=== PATIENT | female | born 1990 | race Caucasian/White ===

== ENCOUNTER → 2018-11-20 10:01 | Outpatient (CLI) | payer OTHER, MEDICAID, SELFPAY ==
[2018-11-20 10:28] LABS: Add Manual Diff / Slide Review NO; Basophils Absolute Auto 0 /uL (0-100); Basophils Percent Auto 0.5 % (0-2); Eosinophils Absolute Auto 100 /uL (0-450); Eosinophils Percent Auto 1.4 % (2-4); Hematocrit 37.7 % (36-46); Hemoglobin 12.5 g/dL (12.0-16.0); Lymphocytes Absolute Auto 1900 /uL (1100-4500); Lymphocytes Percent Auto 25.8 % (25-40); Mean Corpuscular HGB Conc 33.1 % (30-36); Mean Corpuscular Hemoglobin 28.8 PG (26-34); Monocytes Absolute Auto 700 /uL (0-900); Monocytes Percent Auto 9.8 % (3-14); Neutrophils Absolute Auto 4600 /uL (1500-7000); Neutrophils Percent Auto 62.5 % (50-75); Platelet Count 366 X10^3/uL (150-400); Red Blood Cell Count 4.33 X10^6/uL (4.0-5.2); Red Cell Distribution Width 12.4 % (11.6-14.8); White Blood Cell Count 7.4 X10^3/uL (4.5-11.0)
[2018-11-20 10:36] LABS: Appearance Urine UA CLEAR; Bilirubin Urine UA NEGATIVE (NEGATIVE); Color Urine UA YELLOW; Glucose Urine UA NEGATIVE (Negative); Ketones Urine UA NEGATIVE (NEGATIVE); Leukocyte Esterase Urine UA NEGATIVE (NEGATIVE); Nitrite Urine UA NEGATIVE (Negative); Occult Blood Urine UA NEGATIVE (Negative); Protein Urine UA NEGATIVE (Negative); Specific Gravity Urine UA 1.015 (1.000-1.035); Urobilinogen Urine UA 0.2 E.U./dL (0.2)
[2018-11-20 11:37] LABS: Hepatitis B Surface Antigen NEGATIVE s/c (NEGATIVE); Rubella Antibody IgG 63.7 IU/mL (>15)
[2018-11-20 11:54] LABS: HIV 1 and 2 Antibody NEGATIVE (NEGATIVE); Hep C Virus Ab w/Reflex Quant NEGATIVE s/c (NEGATIVE)
[2018-11-21 15:19] LABS: Varicella IgG Antibody < 135.00 Index (< 135.00)
[2018-11-21 19:20] LABS: RPR Screen Nonreactive (Nonreactive)
== END ==
PROVIDERS: Visit Provider Family Medicine
CPT/HCPCS: 36415; 80055; 81003; 86703; 86787; 86803; 86850; 86900; 86901; 87086

== ENCOUNTER → 2018-11-20 10:16 | Outpatient (CLI) | payer OTHER, MEDICAID, SELFPAY ==
--- NOTE | 2018-11-20 10:43 | DI.US.S_ITS ---
PROCEDURE: US OB <= 14 WEEKS FETUS INDICATIONS: DATING / INITIAL ULTRASOUND TECHNIQUE: Real-time scanning was performed of the fetus and maternal pelvic organs, with image documentation. Endovaginal scanning was also performed to better visualize the fetus and maternal ovaries. COMPARISON: None. FINDINGS: Embryo: A pole is identified, measuring 5 mm, which correlates with a gestational age of 6 weeks 2 days, and the yolk sac is present. No cardiac activity is observed. Measurement variability in dating: +/- 4 weeks by LMP, +/- 7 days by mean sac diameter (use before 6 weeks gestation if crown-rump length not able to be measured), +/- 5 days by crown-rump length (up to 8 weeks 6 days gestation), +/- 7 days by crown-rump length (up to 13 weeks 6 days gestation). Maternal organs: Ovaries the ovaries appear normal. Limited images through the kidneys demonstrate no hydronephrosis. IMPRESSION: There is an irregularly shaped gestational sac with internal debris and the visualized yolk sac and pole, with a pole measuring 5 mm that correlates with a gestational age of 6 weeks 2 days, but without cardiac activity. demise. Dictated by: Erik Mckinnon M.D. on 11/20/2018 at 13:27 Approved by: Erik Mckinnon M.D. on 11/20/2018 at 13:29
== END ==
PROVIDERS: PCP Family Medicine; Visit Provider Family Medicine
DX: O02.1 Missed abortion (principal)
CPT/HCPCS: 36415; 76801; 76817; 80055; 81003; 86703; 86787; 86803; 86850; 86900; 86901; 87086

== ENCOUNTER → 2018-12-10 10:08 | Outpatient (CLI) | payer OTHER, MEDICAID, SELFPAY ==
--- NOTE | 2018-12-10 | DI.US.S_ITS ---
PROCEDURE: US PELVIC COMPLETE INDICATIONS: COMPLETE OR UNSPECIFIED SPONTANEOUS TECHNIQUE: Real-time scanning was performed of the pelvic organs, with image documentation. Additional endovaginal scanning was necessary due to incomplete visualization of the adnexal and endometrial structures by transabdominal scanning. COMPARISON: [facility], US, US OB <= 14 WEEKS FETUS, 11/20/2018, 10:45. FINDINGS: Transabdominal scanning: Limited scanning through the kidneys shows no hydronephrosis. No pathologic free abdominal or pelvic fluid. Endovaginal scanning: Uterus: Uterus is enlarged measuring 12.2 x 4.6 x 7.4 cm. There is a large cystic structure measuring 3.5 x 3.5 x 3.3 cm with a 3 mm echogenic nodule within the uterine cavity. The endometrium is not visualized. Ovaries: Right ovary measures 3.0 x 1.5 x 1.7 cm. left ovary measures 3.0 x 1.8 x 2.1 cm. There is a 1.9 cm corpus luteum cyst in the left ovary. IMPRESSION: 1. There is a 3.5 x 3.5 x 3.3 cm cystic structure in the endometrial cavity suspicious for retained products of conception. 2. Endometrium is not visualized. 3. Enlarged uterus. 4. Normal ovaries. Dictated by: Matheus Rider M.D. on 12/10/2018 at 16:15 Approved by: Matheus Rider M.D. on 12/10/2018 at 16:21
== END ==
PROVIDERS: PCP Family Medicine; Visit Provider Family Medicine
DX: O03.9 Complete or unspecified spontaneous abortion without complication (principal)
CPT/HCPCS: 76830; 76856

== ENCOUNTER → 2019-08-07 15:09 | Outpatient (CLI) | payer OTHER, SELFPAY ==
--- NOTE | 2019-08-07 15:13 | DI.US.S_ITS ---
PROCEDURE: US OB <= 14 WEEKS FETUS INDICATIONS: Initial US for Dating and Viability please OUTSIDE/PRIOR DATING DATA: First dating scan (date and location): 08/07/19. Estimated date of delivery (KARAN) from first dating scan: 04/02/20. TECHNIQUE: Real-time scanning was performed of the fetus and maternal pelvic organs, with image documentation. Endovaginal scanning was also performed to better visualize the fetus and maternal ovaries. COMPARISON: [facility], US, OB <= 14 WEEKS FETUS, 11/20/2018, 10:45. FINDINGS: Embryo: Witmer-rump length measures 3 mm corresponding to 5 weeks 6 days. No heart tones seen at this time. Measurement variability in dating: +/- 4 weeks by LMP, +/- 7 days by mean sac diameter (use before 6 weeks gestation if crown-rump length not able to be measured), +/- 5 days by crown-rump length (up to 8 weeks 6 days gestation), +/- 7 days by crown-rump length (up to 13 weeks 6 days gestation). Maternal organs: Ovaries within normal limits, with 2.3 cm right corpus luteal cysts as well as simple right ovarian cyst measuring 3.2 cm. Limited images through the kidneys demonstrate no hydronephrosis. IMPRESSION: Single intrauterine gestational sac with a 3 mm embryonic disc corresponding to gestational age of 5 weeks 6 days. No definitive heart tones seen at this time. Recommend followup ultrasound in one week to further assess embryonic viability. Dictated by: Giovani GRAYA Interpreted: Sonya Simpson MD on 08/07/2019 at 16:42 Approved by: Sonya Simpson MD, PhD on 08/07/2019 at 16:47
== END ==
PROVIDERS: PCP Family Medicine; Visit Provider Family Medicine
DX: Z34.01 Encounter for supervision of normal first pregnancy, first trimester (principal); Z3A.01 Less than 8 weeks gestation of pregnancy
CPT/HCPCS: 76801; 76817

== ENCOUNTER → 2020-02-19 15:28 | Outpatient (CLI) | payer BC, SELFPAY ==
[2020-02-19 15:55] LABS: Add Manual Diff / Slide Review NO; Basophils Absolute Auto 0 /uL (0-100); Basophils Percent Auto 0.5 % (0-2); Eosinophils Absolute Auto 100 /uL (0-450); Eosinophils Percent Auto 2.2 % (2-4); Hematocrit 34.6 % (36-46); Hemoglobin 11.9 g/dL (12.0-16.0); Lymphocytes Absolute Auto 1900 /uL (1100-4500); Mean Corpuscular HGB Conc 34.4 % (30-36); Mean Corpuscular Hemoglobin 30.2 PG (26-34); Mean Corpuscular Volume 87.7 fL (80-100); Monocytes Absolute Auto 600 /uL (0-900); Monocytes Percent Auto 9.9 % (3-14); Neutrophils Absolute Auto 3200 /uL (1500-7000); Neutrophils Percent Auto 54.4 % (50-75); Platelet Count 280 X10^3/uL (150-400); Red Blood Cell Count 3.95 X10^6/uL (4.0-5.2); Red Cell Distribution Width 12.7 % (11.6-14.8); White Blood Cell Count 5.9 X10^3/uL (4.5-11.0)
[2020-02-19 16:02] LABS: Alanine Aminotransferase 17 IU/L (<35); Albumin 4.6 g/dL (3.5-5.0); Albumin Globulin Ratio 1.4 (1.0-2.8); Alkaline Phosphatase 73 U/L (38-126); Aspartate Aminotransferase 28 IU/L (14-36); Bilirubin Total 0.5 mg/dL (0.2-1.3); Blood Urea Nitrogen 9 mg/dL (7-17); Calcium 9.2 mg/dL (8.4-10.2); Carbon Dioxide 29 mmol/L (22-32); Chloride 103 mmol/L (98-107); Estimated Glomerular Filt Rate > 60.0 mL/min (>60); Globulin 3.2 g/dL (1.7-4.1); Glucose 111 mg/dL (70-100); HEMOLYSIS < 15 (0-50); Potassium 3.7 mmol/L (3.4-5.1); Sodium 138 mmol/L (137-145); Total Protein 7.8 g/dL (6.3-8.2)
[2020-02-19 16:41] LABS: TSH w/ Reflex to FT4 0.96 uIU/mL (0.47-4.68)
== END ==
PROVIDERS: PCP Family Medicine; Referring Provider Family Medicine; Visit Provider Family Medicine
DX: R00.2 Palpitations (principal)
CPT/HCPCS: 36415; 80053; 83735; 84443; 85025

== ENCOUNTER → 2020-06-22 12:35 | Outpatient (CLI) | payer BC, SELFPAY ==
--- NOTE | 2020-06-22 12:37 | DI.US.S_ITS ---
PROCEDURE: US OB <= 14 WEEKS FETUS INDICATIONS: DATING AND VIABILITY OUTSIDE/PRIOR DATING DATA: Last menstrual period (LMP): 04/28/2020. LMP-based estimated date of delivery (KARAN): 02/02/2021 . First dating scan (date and location): 06/22/2020 . Estimated date of delivery (KARAN) from first dating scan: 02/05/2021 . TECHNIQUE: Real-time scanning was performed of the fetus and maternal pelvic organs, with image documentation. Endovaginal scanning was also performed to better visualize the fetus and maternal ovaries. COMPARISON: [facility], OB <= 14 WEEKS FETUS, 08/07/2019, 15:26. FINDINGS: Gestational sac: Intrauterine gestational sac-like fluid collection with mean sac diameter of 2.4 cm corresponding to 7 weeks 3 days. No yolk sac or pole. Measurement variability in dating: +/- 4 weeks by LMP, +/- 7 days by mean sac diameter (use before 6 weeks gestation if crown-rump length not able to be measured), +/- 5 days by crown-rump length (up to 8 weeks 6 days gestation), +/- 7 days by crown-rump length (up to 13 weeks 6 days gestation). Maternal organs: Ovaries within normal limits, with 2.8 cm right corpus luteal cyst . Limited images through the kidneys demonstrate no hydronephrosis. IMPRESSION: 2.4 cm gestational sac corresponding to gestational age of 7 weeks 3 days and no pole or yolk sac is seen. Findings consistent with early embryonic demise versus blighted ovum. Dictated by: Giovani COHEN Interpreted: Pipe Quintana MD on 06/22/2020 at 16:30 Approved by: Pipe Quintana M.D. on 06/22/2020 at 17:02
== END ==
PROVIDERS: PCP Family Medicine; Referring Provider Family Medicine; Visit Provider Family Medicine
DX: O36.80X0 Pregnancy with inconclusive fetal viability, not applicable or unspecified (principal); Z3A.01 Less than 8 weeks gestation of pregnancy
CPT/HCPCS: 76801

== ENCOUNTER → 2020-07-27 16:23 | Outpatient (CLI) | payer BC, SELFPAY ==
[2020-07-27 18:39] LABS: Free T4, Direct Thyroxine 1.02 ng/dL (0.78-2.19)
[2020-07-27 18:41] LABS: Progesterone, Total 5.94 ng/mL
[2020-07-27 18:53] LABS: Thyroid Stimulating Hormone 1.25 uIU/mL (0.47-4.68)
[2020-07-30 05:37] LABS: Cardiolipin Ab IgA <9 APL U/mL (0-11); Cardiolipin Ab IgG <9 GPL U/mL (0-14); Cardiolipin Ab IgM 21 MPL U/mL (0-12)
[2020-07-31 19:36] LABS: Protein C Antigen 93 % (60-150)
[2020-08-02 10:36] LABS: Protein S-Functional 99 % (63-140)
[2020-08-02 11:32] LABS: Dilute Russell Viper Venom 40.2 sec (0.0-47.0); Lupus Reflex Interpretation Comment: (.); PTT-LA 35.7 sec (0.0-51.9)
== END ==
PROVIDERS: PCP Family Medicine; Referring Provider Obstetrics & Gynecology; Visit Provider Obstetrics & Gynecology
DX: N96 Recurrent pregnancy loss (principal)
CPT/HCPCS: 36415; 81240; 81241; 81291; 83520; 84144; 84439; 84443; 85302; 85306; 85598; 85613; 86147

== ENCOUNTER → 2020-10-11 15:17 | Outpatient (CLI) | payer BC, SELFPAY ==
[2020-10-11 16:48] LABS: HCG Quantitative /Beta subunit 3012.1 mIU/mL
== END ==
PROVIDERS: PCP Family Medicine; Referring Provider Obstetrics & Gynecology; Visit Provider Obstetrics & Gynecology
DX: Z34.81 Encounter for supervision of other normal pregnancy, first trimester (principal); N96 Recurrent pregnancy loss
CPT/HCPCS: 36415; 84702

== ENCOUNTER → 2020-10-13 15:31 | Outpatient (CLI) | payer BC, SELFPAY ==
[2020-10-13 18:40] LABS: HCG Quantitative /Beta subunit 6892 mIU/mL
== END ==
PROVIDERS: PCP Family Medicine; Referring Provider Obstetrics & Gynecology; Visit Provider Obstetrics & Gynecology
DX: Z34.81 Encounter for supervision of other normal pregnancy, first trimester (principal); N96 Recurrent pregnancy loss
CPT/HCPCS: 36415; 84702

== ENCOUNTER → 2020-12-06 16:37 | Outpatient (CLI) | payer BC, SELFPAY ==
[2020-12-06 17:49] LABS: Appearance Urine UA CLEAR; Bilirubin Urine UA NEGATIVE (NEGATIVE); Color Urine UA YELLOW; Glucose Urine UA NEGATIVE (Negative); Ketones Urine UA NEGATIVE (NEGATIVE); Leukocyte Esterase Urine UA NEGATIVE (NEGATIVE); Nitrite Urine UA NEGATIVE (Negative); Occult Blood Urine UA NEGATIVE (Negative); Protein Urine UA NEGATIVE (Negative); Specific Gravity Urine UA <=1.005 (1.000-1.035); Urobilinogen Urine UA 0.2 E.U./dL (0.2)
[2020-12-06 17:50] LABS: Add Manual Diff / Slide Review NO; Basophils Absolute Auto 0 /uL (0-100); Basophils Percent Auto 0.2 % (0-2); Eosinophils Absolute Auto 100 /uL (0-450); Eosinophils Percent Auto 1.1 % (2-4); Hematocrit 33.7 % (36-46); Hemoglobin 11.6 g/dL (12.0-16.0); Lymphocytes Absolute Auto 2100 /uL (1100-4500); Lymphocytes Percent Auto 23.9 % (25-40); Mean Corpuscular HGB Conc 34.4 % (30-36); Mean Corpuscular Hemoglobin 29.3 PG (26-34); Mean Corpuscular Volume 85.3 fL (80-100); Monocytes Absolute Auto 700 /uL (0-900); Monocytes Percent Auto 7.5 % (3-14); Neutrophils Absolute Auto 5800 /uL (1500-7000); Neutrophils Percent Auto 67.3 % (50-75); Platelet Count 313 X10^3/uL (150-400); Red Blood Cell Count 3.95 X10^6/uL (4.0-5.2); Red Cell Distribution Width 12.7 % (11.6-14.8); White Blood Cell Count 8.7 X10^3/uL (4.5-11.0)
[2020-12-06 18:00] LABS: pH Urine UA 6.5 (4.5-8.0)
[2020-12-07 04:42] LABS: Varicella IgG Antibody <135 index (Immune >165)
[2020-12-07 08:10] LABS: RPR Screen Non Reactive (Non Reactive)
[2020-12-07 16:21] LABS: Hepatitis B Surface Antigen NEGATIVE s/c (NEGATIVE); Rubella Antibody IgG 66.7 IU/mL (>15)
[2020-12-07 16:37] LABS: HIV 1 & 2 Ab/Ag 4th Gen Combo NEGATIVE (NEGATIVE); Hep C Virus Ab w/Reflex Quant NEGATIVE s/c (NEGATIVE)
== END ==
PROVIDERS: PCP Family Medicine; Referring Provider Obstetrics & Gynecology; Visit Provider Obstetrics & Gynecology
DX: Z34.81 Encounter for supervision of other normal pregnancy, first trimester (principal)
CPT/HCPCS: 36415; 80055; 81003; 86787; 86803; 86850; 86900; 86901; 87086; 87389

== ENCOUNTER → 2021-01-05 10:23 | Outpatient (CLI) | payer BC, SELFPAY ==
[2021-01-07 19:38] LABS: AFP, Serum 45.3 ng/mL (.); Inhibin A, Dimeric 136.75 pg/mL (.); Maternal Ethnicity Caucasian (.); Maternal Weight 153 lbs (.); Number of Fetuses No (.); OSBR Risk 1 IN 8647 (.); Results Report (.); Test Results *Screen Negative* (.); hCG, Serum 36225 mIU/mL (.)
== END ==
PROVIDERS: PCP Family Medicine; Referring Provider Obstetrics & Gynecology; Visit Provider Obstetrics & Gynecology
DX: Z34.82 Encounter for supervision of other normal pregnancy, second trimester (principal); Z3A.17 17 weeks gestation of pregnancy
CPT/HCPCS: 36415; 82105; 82677; 84702; 86336

== ENCOUNTER → 2021-01-26 14:43 | Outpatient (CLI) | payer BC, SELFPAY ==
--- NOTE | 2021-01-26 14:44 | DI.US.S_ITS ---
PROCEDURE: US OB >= 14 WEEKS FETUS INDICATIONS: ANATOMY OUTSIDE/PRIOR DATING DATA: Last menstrual period (LMP): 07/06/2020. LMP-based estimated date of delivery (KARAN): 04/12/2021 . First dating scan (date and location): 01/26/2021 . Estimated date of delivery (KARAN) from first dating scan: 06/15/2021 . TECHNIQUE: Real-time scanning was performed of the fetus, with image documentation and biometric measurements. Endovaginal scanning: No COMPARISON: [facility], , OB >= 14 WEEKS FETUS, 01/03/2021, 15:00. FINDINGS: General: A single living intrauterine gestation is present. Presentation: Variable. Placenta: Placental position is posterior fundal , without previa. Amniotic fluid index: 14.5 cm, normal range is 5-24 cm. heart rate: 152 beats per minute. Maternal cervical canal: 5.0 cm long. Normal lower limit is 2.5 cm. Probable left lower uterine synechiae. biometrics: Biparietal diameter: 20 weeks 2 days Head circumference: 20 weeks Abdominal circumference: 20 weeks 1 day Femur length: 19 weeks 2 days Estimated gestational age from initial scan: not applicable. Composite gestational age from present scan: 20 weeks 0 days Estimated weight and percentile: 313 g Measurement variability for biometric dating: +/- 7 days from 14 weeks to 15 weeks 6 days gestation, +/- 10 days from 16 weeks to 21 weeks 6 days gestation, +/- 2 weeks from 22 weeks to 27 weeks 6 days gestation, +/- 3 weeks for 28 weeks gestation or later. weight reference: 4500 g or EFW >90/95% is considered macrosomia or large for gestational age. EFW <10% is small for gestational age. EFW 5% or less is considered intra-uterine growth restriction. Anatomic survey: Neuro: Ventricles are non-dilated at less than 10 mm. Cisterna magna is normal at 3-11 mm. Cerebellum is normal in size and morphology. Nuchal skin fold: Normal at less than 6 mm between 14-21 weeks gestational age. Face: Nose and lips, facial profile are normal. Spine: No evidence for spina bifida. Heart: 4-chambered heart is present, with normal ventricular outflow tracts. Diaphragm: Diaphragm is intact. Stomach: Left-sided stomach is present. Kidneys: No hydronephrosis. Normal is less than 5 mm in 2nd trimester, less than 7 mm in 3rd trimester. Cord: 3-vessel cord has orthotopic insertion. Bladder: Normal in size. Extremities: All 4 extremities identified. IMPRESSION: 1. Single living IUP with composite age of 20 weeks 0 days corresponding to ultrasound KARAN of 2. RVOT not well visualized; otherwise normal anatomy. Follow-up recommended. 3. Probable uterine synechiae which can be reassessed on follow-up examination. Dictated by: Giovani Amezcua [facility] Interpreted: Jairo Anderson MD on 01/26/2021 at 16:34 Approved by: Jairo Anderson M.D. on 01/26/2021 at 21:58
== END ==
PROVIDERS: PCP Family Medicine; Referring Provider Obstetrics & Gynecology; Visit Provider Obstetrics & Gynecology
DX: Z34.82 Encounter for supervision of other normal pregnancy, second trimester (principal); Z36.89 Encounter for other specified antenatal screening; Z3A.20 20 weeks gestation of pregnancy
CPT/HCPCS: 76811

== ENCOUNTER → 2021-01-31 19:16 | Outpatient (ROUT) | payer BC, SELFPAY ==
[2021-01-31 21:13] LABS: Urine N gonorrhoeae NOT DETECTED
[2021-01-31 21:19] LABS: Urine Chlamydia NOT DETECTED
== END ==
PROVIDERS: Family Provider Family Medicine; PCP Family Medicine; Visit Provider Obstetrics & Gynecology
DX: Z34.90 Encounter for supervision of normal pregnancy, unspecified, unspecified trimester (principal); Z3A.21 21 weeks gestation of pregnancy
CPT/HCPCS: 87491; 87591

== ENCOUNTER → 2021-03-02 11:35 | Outpatient (CLI) | payer BC, SELFPAY ==
[2021-03-02 13:41] LABS: Hematocrit 32.4 % (36-46)
[2021-03-02 13:59] LABS: GTT (PREG) 1 Hour PP 50gm Dose 103 mg/dL (76-139)
== END ==
PROVIDERS: Family Provider Family Medicine; PCP Family Medicine; Referring Provider Obstetrics & Gynecology; Visit Provider Obstetrics & Gynecology
DX: Z34.82 Encounter for supervision of other normal pregnancy, second trimester (principal); Z3A.26 26 weeks gestation of pregnancy
CPT/HCPCS: 36415; 82950; 85014; 85018

== ENCOUNTER 2021-05-12 14:07 | Emergency (ER) | payer BC, SELFPAY ==
[2021-05-12 15:19] VITALS: BP 150/99; PULSE 99; RESP 16; O2SAT 99; BMI 30.2
[2021-05-12 15:57] LABS: COVID19 -Nasal RAPID Negative (Negative)
--- NOTE | 2021-05-12 16:02 | ED.RECABL ---
HPI - Recheck/Abnormal Lab/Rx General Chief Complaint: Recheck/Abnormal Lab/Rx Stated Complaint: 35 Wks Preg. Exposed to COVID, Wants Test Time Seen by Provider: 05/12/21 15:43 History of Present Illness HPI narrative: Reji presents today with chief complaint COVID exposure. She reports that she had exposure to 1 of her friends at her baby shower 4 days ago. They spent approximately 4 hours together inside and outside. She denies any symptoms at this time. She is not vaccinated for COVID. She reports that she is 35 weeks and denies any significant abdominal pain, vaginal irritation, vaginal bleeding or any other acute concerns or complaints. Related Data Home Medications Medication Instructions Recorded Confirmed prenat.vits,cedric,[id number] 1 tab PO DAILY 11/04/20 05/02/21 Previous Rx's Medication Instructions Recorded progesterone micronized 200 mg 200 mg PO BEDTIME #30 cap 08/11/20 capsule (Prometrium) enoxaparin 40 mg/0.4 mL See Rx Instructions .ROUTE 03/21/21 subcutaneous syringe .COMPLEX #12 ml Allergies Allergy/AdvReac Type Severity Reaction Status Date / Time No Known Drug Allergies Allergy Verified 05/02/21 11:42 Review of Systems Review of Systems Narrative: As per HPI Patient History Medical History (Updated 05/12/21 @ 16:10 by Giovani Kaur PA-C) Anti-cardiolipin antibody positive (~07/27/20) Anxiety Clavicle fracture (~1992) Depression Elective Meningitis Migraines Performance anxiety Spontaneous Surgical History History of dilatation and curettage S/P tonsillectomy and adenoidectomy S/P wisdom tooth extraction Family History (Updated 11/04/20 @ 15:26 by Chika Kothari RN) Mother Depression Bipolar 1 disorder Hepatitis C Anxiety Grandmother Diabetes mellitus Congestive heart failure Father Family estrangement Unknown family medical history Grandfather Unknown family medical history Grandmother Unknown family medical history Family estrangement Grandfather Family estrangement Unknown family medical history Sister Bipolar 1 disorder Sister Depression Social History marital status: household members: spouse and none lives independently: No caregiver/support person: No pets and animals: Yes (3 dogs, 2 cats: Aware of precautions, safe.) education level: vocational occupational status: employed 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.) special allyssa needs: No seatbelt use: always do you feel safe at home: Yes Smoking Status: Never smoker second hand exposure: No alcohol intake: former substance use type: does not use during the past year weight has: remained stable well-balanced diet: daily or most days daily servings fruits/ve-4 caffeine: Yes (1 cup/day) Type(s) of exercise: walking and normal ROM and activity frequency: 5-6 times per week Smoking Status: Never smoker Exam Narrative Exam Narrative: Exam Narrative: Const General: cooperative, healthy appearing, comfortable, no acute distress, well developed and well groomed Nutritional Appearance: average body habitus Orientation: alert and oriented x3 HENMT Head: normal to inspection and atraumatic Ears: hearing grossly normal bilaterally Nose: external nose normal and nares normal Face and sinus: normal facial exam Neck Neck: normal visual inspection and supple Resp Effort & Inspection: normal respiratory effort, able to speak in complete sentences, no audible wheezes, not labored, no nasal flaring and no respiratory distress Neuro General: alert, oriented x3, gait normal, tone normal and moves all extremities Cognition: normal cognition Speech: speech normal Gait: normal gait Psych Appearance: grossly normal and well kempt Mental Status: mental status grossly normal Speech and Movement: speech and movement normal Mood: congruent mood Affect: normal affect Initial Vital Signs Initial Vital Signs: Vital Signs Pulse Rate 99 H 05/12/21 15:19 Respiratory Rate 16 05/12/21 15:19 Blood Pressure 150/99 H 05/12/21 15:19 Pulse Oximetry 99 05/12/21 15:19 Course Orders Ordered: ED Orders 05/12/21 15:25 COVID19 -Nasal swab/Pre-Proc Stat Vital Signs Vital signs: Vital Signs - 8 hr 05/12/21 15:19 Pulse Rate 99 H Respiratory Rate 16 Blood Pressure 150/99 H Pulse Oximetry 99 MDM - Recheck/Abnormal Lab/Rx Lab Data Labs: Lab Results 05/12/21 Range/Units 15:25 SARS-CoV-2 (PCR) Negative (Negative) MDM Narrative Medical decision making narrative: This is a well-appearing female with no symptoms at this time. Negative COVID test. Recommend following CDC protocol for exposure quarantine. Return precautions were discussed. Patient verbalizes understanding and agrees to plan and has no further concerns at this time. Thank you A [id number] system was used with the dictation of this note. Please disregard any spelling or grammatical errors. Discharge Plan Departure Patient Disposition: Home Clinical Impression: Close exposure to 2019-nCoV Discharge Date/Time: 05/12/21 16:13 Activity Restrictions/Additional Instructions: It was nice to meet you this afternoon. Please follow the CDC guidelines for post-exposure isolation. Recommend repeating your test and 3-5 days. Thank you Giovani Kaur PAC Prescriptions: No Action progesterone micronized [Prometrium] 200 mg capsule 200 mg PO BEDTIME Qty: 30 RF: 5 enoxaparin 40 mg/0.4 mL syringe See Rx Instructions .ROUTE .COMPLEX Qty: 12 RF: 1 prenat.vits,cedric,etm-[id number] Tablet 1 tab PO DAILY RF: 0 Referrals: Barbie Snyder DO [Primary Care Provider] -
== END 2021-05-12 16:13 | disposition home or self-care (01) ==
PROVIDERS: Emergency Medicine; Emergency Provider Physician Assistant; Family Provider Family Medicine; PCP Family Medicine
DX: Z20.822 Contact with and (suspected) exposure to COVID-19 (principal)
CPT/HCPCS: 87635; 99281; C9803

== ENCOUNTER 2021-05-17 15:03 | Outpatient (CLI) | payer BC, SELFPAY | END 2021-05-17 16:23 | disposition home or self-care (01) | LOC: OB 05-19 13:21 | PROVIDERS: Family Provider Family Medicine; PCP Family Medicine; Referring Provider Obstetrics & Gynecology; Visit Provider Obstetrics & Gynecology | DX: O36.1930 Maternal care for other isoimmunization, third trimester, not applicable or unspecified (principal); Z3A.36 36 weeks gestation of pregnancy | CPT/HCPCS: 59025; 87653; G0378; G0379 ==

== ENCOUNTER → 2021-05-17 17:16 | Outpatient (CLI) | payer BC, SELFPAY ==
[2021-05-18 14:22] LABS: Strep Grp B PCR NEG for Grp B Strep
== END ==
PROVIDERS: Family Provider Family Medicine; PCP Family Medicine; Visit Provider Obstetrics & Gynecology
DX: Z34.83 Encounter for supervision of other normal pregnancy, third trimester (principal); Z3A.36 36 weeks gestation of pregnancy
CPT/HCPCS: 87653

== ENCOUNTER 2021-05-21 08:05 | Inpatient (IN) | payer BC, SELFPAY ==
--- NOTE | 2021-05-21 09:50 | PM.OBHP.1 ---
OB HPI Date/Time Date of admission: 05/21/21 Date Patient Seen: 05/21/21 Time Patient Seen: 09:00 History of Present Condition Chief complaint: LABOR : 6 Para: 0 Estimated Date of Delivery: 06/12/21 Narrative: Reji Fiore is a 30 year old at 36 weeks and 6 days gestation with spontaneous rupture membranes at approximately 4:30 a.m. this morning with clear fluid. She is feeling frequent movement. She has had a small amount of blood with wiping but nothing heavy. She is just beginning to feel mild contractions this morning. was complicated by positive anticardiolipin antibody for which she was placed on Lovenox and a baby aspirin. She was just transitioned to heparin, last dose was last night. She was seen in the center earlier this week due to hypertension. Blood pressures came down spontaneously. Today she denies headache, vision changes, worsening edema or abdominal pain. She received good care with Dr. Mina. History of Present care: good care, initiated at week # (9), number of visits (9) and pounds weight gain (41) Dating criteria: LMP confirmed by 1st trimester US Ultrasounds: normal mid trimester US Obstetrical complications: none Medical complications: none Preadmission Labs Blood type: O (+) positive -: Antibody screen: negative, GBS status: negative, HBsAG: negative, HIV: negative and RPR/VDLR: negative -: Chlamydia screen: not detected -: Rubella: immune and Varicella: not immune HCT: 32.4 HCAB: negative PAP: Normal Quad screen: Normal Urine: Negative 1 hr GTT: 103 Prior (ies) History: Elective x2, SAB x3 Evaluation Evaluation Baseline heart rate: 150 Variability: Moderate (11-25) monitor accelerations: Present Monitor Decelerations: Absent Contraction Frequency (minutes): 2 Uterine Contraction Intensity: Mild Category of Tracing: Reactive Status: Category l Cervical dilation (cm): 1 Cervical effacement (%): 80 station: -2 Non-invasive Membranes Rupture Test: positive PFSH Medical History Anti-cardiolipin antibody positive (~07/27/20) Anxiety Clavicle fracture (~1992) Depression Elective Meningitis Migraines Performance anxiety Spontaneous Surgical History History of dilatation and curettage S/P tonsillectomy and adenoidectomy S/P wisdom tooth extraction Family History Mother Depression Bipolar 1 disorder Hepatitis C Anxiety Grandmother Diabetes mellitus Congestive heart failure Father Family estrangement Unknown family medical history Grandfather Unknown family medical history Grandmother Unknown family medical history Family estrangement Grandfather Family estrangement Unknown family medical history Sister Bipolar 1 disorder Sister Depression Social History marital status: household members: spouse and none lives independently: No caregiver/support person: No pets and animals: Yes (3 dogs, 2 cats: Aware of precautions, safe.) education level: vocational occupational status: employed 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.) special allyssa needs: No seatbelt use: always do you feel safe at home: Yes Smoking Status: Never smoker second hand exposure: No alcohol intake: former substance use type: does not use during the past year weight has: remained stable well-balanced diet: daily or most days daily servings fruits/ve-4 caffeine: Yes (1 cup/day) Type(s) of exercise: walking and normal ROM and activity frequency: 5-6 times per week Meds Home Medications and Allergies Home Medications Medication Instructions Recorded Confirmed Type progesterone micronized 200 mg 200 mg PO BEDTIME #30 cap 08/11/20 05/17/21 Rx capsule (Prometrium) prenat.vits,cedric,rya-lutq-wnswb 1 tab PO DAILY 11/04/20 05/17/21 History enoxaparin 40 mg/0.4 mL See Rx Instructions .ROUTE 03/21/21 05/17/21 Rx subcutaneous syringe .COMPLEX #12 ml heparin (porcine) 5,000 unit/mL (1 5,000 unit SUBCUT Q12H #50 ml 05/17/21 05/17/21 Rx mL) injection cartridge Allergies Allergy/AdvReac Type Severity Reaction Status Date / Time No Known Drug Allergies Allergy Verified 05/17/21 14:08 Exam Vital Signs (past 8 hours): Temperature 36.7? Blood pressure 132/77 heart rate 85 Const General: healthy appearing and comfortable [facility] Head: normal to inspection Ears: hearing grossly normal bilaterally Nose: external nose normal Face and sinus: normal facial exam Mouth: oral mucosae normal Eyes General: appearance normal, both eyes and all related structures Neck Neck: normal visual inspection Resp Effort & Inspection: normal respiratory effort Auscultation: clear to auscultation bilaterally Cardio Rate: regular rate Rhythm: regular rhythm Heart Sounds: no murmurs GI Other: Gravid External Female Exam: normal external appearance Manual OB Exam: dilated 1, effaced (80) and station -2 Presentation: vertex Estimated Weight (lbs): 6 Amniotic Fluid: clear Back/Spine/Pelvis Back: normal to inspection Skin General: no rashes or lesions noted Extrem General: normal to inspection and no pedal edema Assessment and Plan Assessment and Plan Assessment and Plan narrative: 30-year-old at 36 weeks and 6 days with spontaneous rupture of membranes at 4:30 a.m. with clear fluid. GBS negative. She is carter regularly though not yet in active labor. Patient will walk for an hour then return to the center for Pitocin if not in active labor. was complicated by anticardiolipin antibody for which the patient used Lovenox and aspirin. She was recently transitioned to heparin. Last dose of heparin was last night. Plan Pitocin per protocol Epidural upon request Anticipate Keaton Mina aware of patient and plans to deliver when the time comes.
[2021-05-21 11:53] LABS: Add Manual Diff / Slide Review NO; Basophils Absolute Auto 0 /uL (0-100); Basophils Percent Auto 0.2 % (0-2); Eosinophils Absolute Auto 100 /uL (0-450); Eosinophils Percent Auto 1.1 % (2-4); Hematocrit 34.4 % (36-46); Hemoglobin 11.4 g/dL (12.0-16.0); Lymphocytes Absolute Auto 2000 /uL (1100-4500); Lymphocytes Percent Auto 16.8 % (25-40); Mean Corpuscular Hemoglobin 28.8 PG (26-34); Mean Corpuscular Volume 87.4 fL (80-100); Monocytes Absolute Auto 900 /uL (0-900); Monocytes Percent Auto 7.6 % (3-14); Neutrophils Absolute Auto 8900 /uL (1500-7000); Neutrophils Percent Auto 74.3 % (50-75); Platelet Count 273 X10^3/uL (150-400); Red Blood Cell Count 3.94 X10^6/uL (4.0-5.2); Red Cell Distribution Width 13.1 % (11.6-14.8)
[2021-05-21 12:43] LABS: COVID19 - ADMIT (NP swab/PCR) Negative (Negative)
[2021-05-21] MEDS: LACTATED RINGERS 1,000 ML 100 ML IV ×2 (13:27→17:25)
[2021-05-21] MEDS: OXYTOCIN PREMIX 30 UNIT/500 ML PLAST..BAG IV (13:27)
[2021-05-21 14:11] LABS: Alanine Aminotransferase 15 IU/L (<35); Albumin 3.7 g/dL (3.5-5.0); Alkaline Phosphatase 226 U/L (38-126); Aspartate Aminotransferase 27 IU/L (14-36); Bilirubin Total 0.3 mg/dL (0.2-1.3); Blood Urea Nitrogen 12 mg/dL (7-17); Calcium 9.8 mg/dL (8.4-10.2); Carbon Dioxide 21 mmol/L (22-32); Chloride 107 mmol/L (98-107); Estimated Glomerular Filt Rate > 60.0 mL/min (>60); Globulin 3.6 g/dL (1.7-4.1); Glucose 89 mg/dL (70-100); HEMOLYSIS < 15 (0-50); Potassium 4.4 mmol/L (3.4-5.1); Sodium 136 mmol/L (137-145); Total Protein 7.3 g/dL (6.3-8.2)
[2021-05-21 14:21] LABS: Creatinine Urine Random 42.1 mg/dL; Protein (Total) Urine Random 16 mg/dL (0-12); Protein Creatinine Ratio Urine 0.38 GRAM/24H
[2021-05-21 15:21] VITALS: BP 134/95
--- NOTE | 2021-05-21 17:37 | PM.AN.REGBLK ---
Regional Block Pre-procedure Procedure: Continuous Lumbar Epidural for L&D Attending OB provider: Barbie Snyder PMH/ROS narrative: Patient with previous SAB 2/2 anti-cardiolipin Ab syndrome. Lovenox --> heparin. None today. Hx: No personal or family history of anesthesia problems. PSH/Anesthesia history narrative: no previous epidurals Exam narrative: MP1, RRR, CTAB ASA Class: III Labs: Hct 34.4 % (36-46) L 05/21/21 11:25 Plt Count 273 X10^3/uL (150-400) 05/21/21 11:25 Medications: Current Medications Generic Name Dose Route Start Last Admin Trade Name Freq PRN Reason Stop Dose Admin Calcium Carbonate 1,000 mg 05/21/21 09:49 Calcium Carbonate 500 Mg Tab PO Q2HR PRN Dyspepsia Carboprost Tromethamine 250 mcg 05/21/21 09:49 Carboprost 250 Mcg/Ml Ampul IM Q90M PRN Bleeding Fentanyl 50 mcg 05/21/21 09:49 Fentanyl 100 Mcg/2 Ml Inj IV Q1H PRN Pain, Moderate (4-6) Lactated Ringer's 1,000 mls @ 100 mls/hr 05/21/21 10:00 05/21/21 17:25 Lactated Ringers IV 100 mls/hr CONT IMMANUEL Administration Oxytocin/Lactated Ringer's 30 unit in 500 mls @ 200 mls/hr 05/21/21 09:49 Oxytocin Premix IV CONT PRN Bleeding Protocol Tranexamic Acid 1,000 mg/ 100 mls @ 200 mls/hr 05/21/21 09:49 Sodium Chloride IV NOW PRN Bleeding Oxytocin/Lactated Ringer's 30 unit in 500 mls @ 3 mls/hr 05/21/21 12:30 05/21/21 13:27 Oxytocin Premix IV 3 milliunit/min TITRATE IMMANUEL 3 mls/hr Administration Protocol 3 MILLIUNIT/MIN Methylergonovine Maleate 0.2 mg 05/21/21 09:49 Methylergonovine 0.2 Mg Tablet PO Q6HR PRN Heavy Bleeding Methylergonovine Maleate 0.2 mg 05/21/21 09:49 Methylergonovine 0.2 Mg/Ml Vial IM NOW PRN Bleeding Misoprostol 800 mcg 05/21/21 09:49 Misoprostol 200 Mcg Tablet NM NOW PRN Bleeding Misoprostol 1,000 mcg 05/21/21 09:49 Misoprostol 200 Mcg Tablet NM NOW PRN Bleeding Misoprostol 400 mcg 05/21/21 09:49 Misoprostol 200 Mcg Tablet SL NOW PRN Bleeding Naloxone HCl 0.2 mg 05/21/21 09:49 Naloxone 0.4 Mg/Ml Vial IV Q2MIN PRN Opiate Reversal Ondansetron HCl 4 mg 05/21/21 09:49 Ondansetron 4 Mg/2 Ml Inj IV Q4HR PRN Nausea And Vomiting Oxytocin 10 unit 05/21/21 09:49 Oxytocin 10 Unit/Ml Vial IM NOW PRN Bleeding Allergies: Allergies Allergy/AdvReac Type Severity Reaction Status Date / Time No Known Drug Allergies Allergy Verified 05/17/21 14:08 Procedure Insertion date: 05/21/21 Insertion time: : Prep/Local: betadine x3 (chloroprep) and 1% lidocaine Interspace: L3-4 Patient position: sitting Needle: 18 gauge Maryannetead Loss of resistance with: saline LEONA at (cm): 5 Catheter placed at SKIN (cm): 10 Catheter in SPACE (cm): 5 Insertion: Yes CSF Initial Medications TEST DOSE time: 17:20 TEST DOSE: 1.5% lidocaine with epinephrine 1:200k (mL): 5 BOLUS DOSE time: : BOLUS DOSE (mL): 2 BOLUS DOSE med: other (10mcg fentanyl intrathecally, 90mcg fentanyl via epidural catheter) Infusion INFUSION: 0.0625% bupivacaine and with fentanyl 2 mcg/mL Initial rate (mL/hr): 12 Post-procedure Anesthesia time START: 17:02
--- NOTE | 2021-05-21 18:44 | PM.OBPNLAB ---
Date/Time Date Patient Seen: 05/21/21 Time Patient Seen: 18:44 Pain Control Pain control: epidural Pelvic Exam Dilation (cm): 5 Effacement (%): 100 station: -1 Amniotic membrane status: Ruptured Contractions Contractions on admission: irregular Monitor mode: External Pitocin rate (mU/min): 3 Contraction frequency (min): 4 Contraction pattern: Irregular Contraction intensity: Strong/Firm Status status: Category l Heart Rate Baseline: 135 Monitor Accelerations: Present Monitor Decelerations: Absent Monitor Variability: Moderate Assessment and Plan Assessment: active labor Plan: continuous present management
--- NOTE | 2021-05-21 22:58 | PM.OBPRVD ---
Labor & Delivery Delivery date: 05/21/21 Delivery augmentation: rupture of membranes Delivery monitor: external FHT Route of delivery: L&D Laceration Description: Vaginal - 2nd Degree and Labial (right labial, first degree) Delivery repair: vicryl (3-O) Estimated blood loss (mL): 100 Anesthesia Type: Epidural Narrative: Patient is a 30-year-old who presented premature rupture membranes at 36 weeks and 6 days gestation. STAGE I: Labor Patient presented to the center with spontaneous rupture of membranes at 4:30 a.m. at home with clear fluid. She was started Pitocin per protocol and went on to receive an epidural with excellent pain control. heart tones were category 1 and 2 throughout stage I due to variable decelerations at times. Variability remained moderate throughout. She was complete at 10:00 p.m.. STAGE II: Delivery Patient pushed over 2 contractions and delivered a vigorous female infant at 10:35 p.m.. Infant was vertex and HECTOR. was immediately placed on mother's abdomen. Cord was clamped and cut after 1 minute delay. STAGE III: Placenta/Cord Placenta delivered at 10:40 p.m. after active management and appeared intact with a three-vessel cord. Pitocin bolus given via IV after delivery of the placenta. A second-degree vaginal laceration was repaired in the usual fashion with 3-0 Vicryl. A right labial laceration was also repaired with good hemostasis. Uterine fundus was firm below umbilicus after repair. Hemostasis assured. EBL: 100 mL. Needle and sponge counts were correct. The vagina was inspected and no items were left in situ. Patient was doing well with Peggy, her and at bedside. Baby 1: Infant gender: Female Presentation: vertex Placenta delivery description: Spontaneous Cord Vessel Description: 3 Vessels score (1 min): 9 score (5 min): 9 Plan for aftercare: Routine care
[2021-05-22] MEDS: IBUPROFEN 600 MG TABLET PO (01:10)
[2021-05-22] MEDS: ACETAMINOPHEN 325 MG TABLET 650 MG PO (01:10)
[2021-05-22 02:30] VITALS: BP 144/90; PULSE 102; RESP 16; TEMP 37.1
[2021-05-22] MEDS: ENOXAPARIN 40 MG/0.4 ML SYRINGE SUBCUT (16:05)
[2021-05-23] MEDS: ENOXAPARIN 40 MG/0.4 ML SYRINGE SUBCUT (09:48)
[2021-05-23] MEDS: DOCUSATE 100 MG CAPSULE PO (09:48)
--- NOTE | 2021-05-31 04:14 | P.DS_ITS ---
Discharge Providers Provider Date of admission: 05/21/21 08:05 Discharge Date: 05/23/21 Primary care physician: Barbie Snyder DO Consults: 05/22/21 23:00 Consult to [employer] Routine Comment: Discharge provider: Janae Mina MD Summary Hospital Course Date Patient Seen: 05/23/21 Time Patient Seen: 13:30 Diagnoses: 36-5/7 weeks gestation Pre term premature rupture of membranes Spontaneous vaginal delivery Hospital Course: Patient is a 30-year-old 6 para 1 who presented on May 21, 2021 with spontaneous rupture of membranes. She was started on Pitocin and progressed in active labor and had a spontaneous vaginal delivery. Her course was unremarkable and on day # 2 she was discharged home. Peripartum Data Infant Delivery Method: Natural Vaginal Laceration Description: Perineal - 2nd Degree and Labial (Right) Episiotomy description: None Procedures: Epidural analgesia Spontaneous vaginal delivery Obstetrical laceration repair complications: none Imbler 1: Gender: Female Disposition of : home Status at Discharge Cognitive/behavioral status at discharge: oriented Functional status at discharge: independent ambulation Overall status at discharge: patient is progressing back to baseline Time Spent with Patient Time attestation: Total time spent providing and/or coordinating discharge services: Time spent: Less than 30 minutes Objective Labs Result Diagrams: 05/21/21 11:25 05/21/21 13:53 Exam Narrative Exam Narrative: Generally: Patient is sitting up in bed, holding , no acute distress Fundus: Firm at U-2 Extremities: Trace edema, negative Homans Discharge Plan Discharge Plan Patient Disposition: Home Provider Discharge Comment: Call with fever, chills, or bleeding vaginally more than a pad in an hour Ibuprofen 600 mg every 6 hours as needed for cramping Discharge orders & Medications Prescriptions: Continued prenat.vits,cedric,[id number]-[id number] Tablet 1 tab PO DAILY RF: 0 heparin (porcine) 5,000 unit/mL (1 mL) cartridge 5,000 unit SUBCUT Q12H Qty: 50 RF: 0 Discontinued progesterone micronized [Prometrium] 200 mg capsule 200 mg PO BEDTIME Qty: 30 RF: 5 enoxaparin 40 mg/0.4 mL syringe See Rx Instructions .ROUTE .COMPLEX Qty: 12 RF: 1 Follow up/Referrals: Janae Mina MD [Physician] - 6 Weeks (Please follow-up with Dr. Mina for a 6 week [id number] check-up on July 04 @ 10:30am. Please call with any questions or concerns.) Diet/Activity/Treatments Diet: Regular Activity: Nothing in the vagina for 6 weeks Skin/Wound/Dressing Care Report to your healthcare provider any signs of infection, such as:: chills, fever, increased pain and unusual drainage Visit Report/Discharge Packet Instructions: DI for Labor and Delivery, Vaginal Discharge Data Primary Care Provider: Barbie Snyder
== END 2021-05-23 14:00 | disposition home or self-care (01) | DRG 807 ==
PROVIDERS: Admitting Provider Family Medicine; Family Provider Family Medicine; PCP Family Medicine; Referring Provider Family Medicine; Visit Provider Family Medicine
DX: O42.013 Preterm premature rupture of membranes, onset of labor within 24 hours of rupture, third trimester (principal); Z37.0 Single live birth; Z3A.36 36 weeks gestation of pregnancy; O70.1 Second degree perineal laceration during delivery; O99.891 Other specified diseases and conditions complicating pregnancy; R79.1 Abnormal coagulation profile; Z20.822 Contact with and (suspected) exposure to COVID-19
CPT/HCPCS: 01967; 36415; 59050; 59400; 59409; 80053; 82570; 84112; 84156; 85025; 86850; 86900; 86901; 87635; C9803; G0379; J1650; J2590

== ENCOUNTER → 2022-02-09 10:33 | Outpatient (CLI) | payer BC, SELFPAY ==
[2022-02-09 11:55] LABS: Add Manual Diff / Slide Review NO; Basophils Absolute Auto 0 /uL (0-100); Basophils Percent Auto 0.5 % (0-2); Eosinophils Absolute Auto 300 /uL (0-450); Eosinophils Percent Auto 4.1 % (2-4); Hematocrit 39.6 % (36-46); Hemoglobin 13.1 g/dL (12.0-16.0); Lymphocytes Absolute Auto 2200 /uL (1100-4500); Mean Corpuscular Hemoglobin 28.8 PG (26-34); Mean Corpuscular Volume 87.2 fL (80-100); Monocytes Absolute Auto 600 /uL (0-900); Monocytes Percent Auto 9.3 % (3-14); Neutrophils Absolute Auto 3800 /uL (1500-7000); Neutrophils Percent Auto 55.1 % (50-75); Platelet Count 328 X10^3/uL (150-400); Red Blood Cell Count 4.54 X10^6/uL (4.0-5.2); Red Cell Distribution Width 12.6 % (11.6-14.8)
[2022-02-09 12:29] LABS: Alanine Aminotransferase 16 IU/L (<35); Albumin 4.9 g/dL (3.5-5.0); Albumin Globulin Ratio 1.6 (1.0-2.8); Alkaline Phosphatase 136 U/L (38-126); Aspartate Aminotransferase 23 IU/L (14-36); BUN Creatinine Ratio 18.7 (6-22); Bilirubin Total 0.5 mg/dL (0.2-1.3); Blood Urea Nitrogen 14 mg/dL (7-17); Calcium 9.5 mg/dL (8.4-10.2); Carbon Dioxide 29 mmol/L (22-32); Chloride 104 mmol/L (98-107); Estimated Glomerular Filt Rate > 60 mL/min (>60); Globulin 3.1 g/dL (1.7-4.1); Glucose 87 mg/dL (70-100); HEMOLYSIS < 15 (0-50); Potassium 4.5 mmol/L (3.4-5.1); Sodium 140 mmol/L (137-145)
[2022-02-09 12:58] LABS: TSH w/ Reflex to FT4 0.72 uIU/mL (0.47-4.68)
[2022-02-09 13:16] LABS: Vitamin B12 825 pg/mL (239-931)
== END ==
PROVIDERS: Family Provider Family Medicine; PCP Family Medicine; Referring Provider Family Medicine; Visit Provider Family Medicine
DX: D64.9 Anemia, unspecified (principal); F32.81 Premenstrual dysphoric disorder; Z15.89 Genetic susceptibility to other disease
CPT/HCPCS: 36415; 80053; 82607; 84443; 85025

== ENCOUNTER → 2022-04-28 12:36 | Outpatient (CLI) | payer BC, SELFPAY ==
[2022-04-28 14:43] LABS: HCG Quantitative /Beta subunit < 2.4 mIU/mL
== END ==
PROVIDERS: Obstetrics & Gynecology; Family Provider Family Medicine; PCP Family Medicine; Referring Provider Family Medicine; Visit Provider Family Medicine
DX: O20.9 Hemorrhage in early pregnancy, unspecified (principal)
CPT/HCPCS: 36415; 84702

== ENCOUNTER → 2022-05-08 10:48 | Outpatient (RCR) | payer BC, SELFPAY ==
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
--- NOTE | 2021-02-07 17:02 | PT.OPPOC ---
Physical, Occupational & Speech Therapy At [facility] Current Diagnoses Low back pain (02/07/21) Other specified related conditions, unspecified trimester (02/07/21) Encounter for supervision of normal , unspecified, unspecified trimester (02/07/21) Visit Care Team Role Provider Type Barbie Snyder DO Family Provider Physician Primary Care Provider Specialty: [facility] Practice Address: [address] [place] [address], [place], [address] Email: [email or web address] Janae Mina MD Attending Provider Physician Referring Provider Specialty: Gynecology [employer]NA[employer] Obstetrics Address: [address] [place] [address], [id number] Email: [email or web address] Plan Of Care PT-OP-T Assessment and Plan Start: 02/04/21 18:52 Freq: Status: Active Protocol: Document 02/07/21 09:52 LRN (Rec: 02/07/21 10:36 LRN [id number]) Physical Therapy Assessment Rehab Potential Rehabilitation Potential Good Evaluation Complexity Number of Personal Factors/Comorbidities 1-2 Number of Body Systems Impaired 4 or More Clinical Presentation at Evaluation Evolving Impairments Impairments Activity Tolerance,Pain, Posture,ROM,Strength Goals Three Impairment Pain in R buttock & LE rated 8 /10 Short Term Goal (STG) Pt will be able to participate in a walking program at least 3x/week. STG Duration 04/08/21 Video Library Assistant Goal (LTG) Decrease low back, R buttock and LE pain to no greater than 5-6/10 at its worst to be tolerable. LTG Duration 05/08/21 Two Impairment R hip pain/LE numbness after prolonged positioning ( primarily sitting) Short Term Goal (STG) Pt will be educated in proper transfers to reduce strain/ pain at SIJ's. STG Duration 02/21/21 Video Library Assistant Goal (LTG) Pt will be able to manage her pain without medications. LTG Duration 05/08/21 One Impairment Lacks appropriates self care HEP Short Term Goal (STG) Pt will be educated in proper posture. STG Duration 02/14/21 Fpc Goal (LTG) Pt will be independent in a self care mobility & strengthening HEP for the back /hips/PF. LTG Duration 05/08/21 Assessment Summary Assessment Sitting during eval pain started. Pt is a 30 yo female who is 22 weeks ( delivery estimated date ), with mechanical and soft tissue dysfunction and appears to have R SIJ dysfunction ( hypermobile) and decreased trunk mobility: flex, significant R rotation, R SB. She has pain with decreased L hip IR mobility and R SIJ pain limiting PSLR on the left (no pain with PSLR on right). As expected she has decreased core strength and R SIJ pain/dysfunction. She demonstrates poor posturing as would be expected with her growing belly, causing changes in her center of gravity. The pt will benefit from skilled physical therapy for education in proper posturing and exercises to help counteract changes in posture as her progresses. Transfer training, therapeutic ex to improve core/hip strength and stability and stretches to decrease her stiffness and pain after prolonged sitting, as well as hip/PF stretches to prepare the pt's body for birthing. STM and manual therapy for pain management and postural corrections. Therapy will be for 2x/week, until the pt is set on a self care program, then followed 1x/week as needed. Physical Therapy Plan Frequency and Duration Frequency of Treatment 2x/Week Plan of Care Start Date 02/07/21 Plan of Care End Date 05/08/21 Therapeutic Interventions Therapeutic Interventions Home Exercise Program,Joint Mobilizations,Manual Therapy, Patient/Caregiver Education, Self-Care/Home Management,Soft Tissue Mobilization,Taping, Therapeutic Activities, Therapeutic Exercises Modalities Cold Pack/Ice Massage Next Visit Focus/Plan Next Note Type Treatment Note Next Visit Plan Pre- rehabilitation. Review of nighttime positioning. Manual therapy for R SIJ dysfunction (R anteriorly rotated pelvis, standing L rotated sacrum, supine R rotated sacrum), R SIJ stabilization, core strengthening, PF/LB/hip stretches (cat/cow; child's pose, trunk R rot & lateral flex, sitting trunk flex, hip IR left) Plan of Care Dates Plan of Care Start Date 02/07/21 Plan of Care End Date 05/08/21 Electronically Signed by: Josiane Maldonado, PT 02/07/21 0981 Please Sign and Return: I have reviewed this Plan of Care and certify that the skilled therapy services above are required to meet the patient?s needs. Physician Signature Date Printed Name and Credentials Clinical Instructor Signature Printed Name and Credentials
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
--- NOTE | 2021-02-21 15:30 | PT-OP ANOTE ---
Pt notified of missed appointment and of her next scheduled appointment.
--- NOTE | 2021-10-06 11:09 | PT.OPDS ---
Current Diagnoses Low back pain (02/16/21) Other specified related conditions, unspecified trimester (02/16/21) Encounter for supervision of normal , unspecified, unspecified trimester (02/16/21) Visit Care Team Role Provider Type Barbie Snyder DO Family Provider Physician Primary Care Provider Specialty: Family Practice Address: [address] [place] [address], [place], [address] Email: [email or web address] Janae Mina MD Attending Provider Physician Referring Provider Specialty: Gynecology [employer] [facility] Address: [address] [place] [address], [id number] Email: [email or web address] Visit Number Visit Number 3 Discharge Summary PT-OP-B Current Condition Start: 02/04/21 18:52 Freq: Status: Active Protocol: Document 02/07/21 09:52 LRN (Rec: 02/07/21 10:36 LRN [id number]) Current Condition History of Current Condition Onset Date Since 11/2020 (2nd month of ) Current Complaints R hip pain, & radiating pain/ numbness down the posterior R leg. History of Current Condition 22 weeks . Insidious onset with . Two previous miscarrages due to clotting and each time had low back pain; therefore she initially thought her back pain was related to pending miscarrage, but has been on Lovenox for the blood clotting , and back pain persists. Pain varies, no pain unless moving around a lot, then pain worsens, causing surging pain and numbness on the R buttock and down the posterior aspect of the leg down to the ankle. Symptoms decrease if she lies on her back, once she gets home from work. If sitting too long in evenings, she feels stuck due to the R hip/leg pain. She feels the back/hip loosens if stays on her feet. Taking her 3 dogs for walk aggrevates her pain. Typically sleeps on stomach, now sleeps on sides and sometimes in a twisted position. States she just ordered a pillow. Pt is R handed. Prior Treatments and Tests None Future Testing and Treatments Planned Maternity leave at end of January. Developmental History Developmental History Patient requested PT at the peak of her pain, but pain has since decreased. She has also reduced her work hours from FT to PT. Treatment Goals Patient/Caregiver Goals Pt's goal with therapy is to make the pain more tolerable ( 5-6/10), currently 8/10. 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 Baseline Function- Recreation/Hobbies Walked her 3 dogs on leashes. Current Functional Impairments (Reported) Functional Limitations- ADL's Difficulty getting up after sitting for prolonged time. Functional Limitations- Mobility/Gait Sometimes walks her 3 dogs. Functional Limitations- Work/School PT 20 hrs/week. 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 Plans to go on maternity leave at end of January. Personal Factors Other Personal Factors That May Effect Hx of miscarriage. 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 PT-OP-C Subjective Start: 02/04/21 18:52 Freq: Status: Active Protocol: Document 02/16/21 09:53 LRN (Rec: 02/16/21 10:39 LRN [id number]) OP-PT Subjective Patient Comments Patient Comments Doing good, no back pain. Overdid it yesterday because more pain than has been felt because of work and did hills, but after a nights rest doesn 't feel young. PT-OP-F Manual Assessment Start: 02/04/21 18:52 Freq: Status: Active Protocol: Document 02/16/21 09:53 LRN (Rec: 02/16/21 10:39 LRN [id number]) Manual Assessments Joint Mobility Assessment Joint Mobility Assessment Pelvis found to be in neutral. PT-OP-J Posture/Palpation/Skin Start: 02/04/21 18:52 Freq: Status: Active Protocol: Document 02/07/21 09:52 LRN (Rec: 02/07/21 10:36 LRN [id number]) Posture Evaluation Position Standing Head/C-Spine Posture Neutral Position,Side Bent Left L-Spine Posture Increased Lordosis Shoulder Posture Neutral Pelvis Posture Anteriorly Tilted Weight Distribution Balanced Foot Arch (L) Low Arch,(R) Low Arch Comments Posture Comments Sway back PT-OP-K Range of Motion Start: 02/04/21 18:52 Freq: Status: Active Protocol: Document 02/07/21 09:52 LRN (Rec: 02/07/21 10:36 LRN [id number]) Lumbar Spine Range of Motion Lumbar Spine Active Degrees Testing Position Standing Flexion 79 Extension 25 Rotation Left 30 Rotation Right 20 Lateral Flexion Left 25 Lateral Flexion Right 20 ROM Limitations Soft Tissue Tightness Comments Tight in low back Hip Goniometric Range of Motion Hip Right Passive Testing Position Supine Internal Rotation 40 External Rotation 70 Left Passive Testing Position Supine Internal Rotation 30 External Rotation 70 PT-OP-M Strength Start: 02/04/21 18:52 Freq: Status: Active Protocol: Document 02/07/21 09:52 LRN (Rec: 02/07/21 10:36 LRN [id number]) Hip Strength Hip Manual Muscle Testing Right Flexion (L2) 3+ Fair+ Abduction 5 Normal Adduction 3 Fair External Rotation 5 Normal Internal Rotation 2- Poor- Comments Deferred MMT on hip AD but pt able to lift against gravity. Left Flexion (L2) 3 Fair Abduction 5 Normal Adduction 3 Fair External Rotation 5 Normal Internal Rotation 5 Normal Comments Deferred MMT on hip AD but pt able to lift against gravity. PT-OP-T Assessment and Plan Start: 02/04/21 18:52 Freq: Status: Active Protocol: Document 10/06/21 10:58 LRN (Rec: 10/06/21 11:09 LRN [id number]) Physical Therapy Assessment Goals Three Impairment Pain in R buttock & LE rated 8 /10 Short Term Goal (STG) Pt will be able to participate in a walking program at least 3x/week. STG Duration 04/08/21 (10/06/21: Pt unavailable for final assessment) Longterm Goal (LTG) Decrease low back, R buttock and LE pain to no greater than 5-6/10 at its worst to be tolerable. LTG Duration 05/08/21 (10/06/21: Pt unavailable for final assessment) Two Impairment R hip pain/LE numbness after prolonged positioning ( primarily sitting) Short Term Goal (STG) Pt will be educated in proper transfers to reduce strain/ pain at SIJ's. (02/08/21: Educated pt in transfer training) STG Duration 02/21/21 (02/08/21: MET GOAL, but need to review w/pt) Longterm Goal (LTG) Pt will be able to manage her pain without medications. (02/16/21: Pt has taken tylenol only for headaches, not needed for back pain) LTG Duration 05/08/21 (MET GOAL) One Impairment Lacks appropriates self care HEP Short Term Goal (STG) Pt will be educated in proper posture. (02/16/21: Pt educated in awareness of postural changes with ) STG Duration 02/14/21 (02/16/21: Partially met goal) Expansion Envelope Maker Hand Goal (LTG) Pt will be independent in a self care mobility & strengthening HEP for the back /hips/PF. (02/08/21: Added TA/GM strengthening) LTG Duration 05/08/21 (02/08/21: Partially met goal) Assessment Summary Assessment The pt had good relief from her hip pain after 2 visit, and failed to attend further therapy. She was seen for an eval and 2 treatment visits. She cancelled her remaining 4 vists and did not show for 2 visits. Pt was last seen . Pt is being discharged due to lack of attendance. Physical Therapy Plan Discharge Physical Therapy Discharge Reasons No Longer Attending PT Discharge Comments Recommend referral post- if hip pain returns. Thank you for your referral.
== END ==
LOC: PHYS 02-07 09:29
PROVIDERS: Family Provider Family Medicine; PCP Family Medicine; Referring Provider Obstetrics & Gynecology; Visit Provider Obstetrics & Gynecology
DX: O26.899 Other specified pregnancy related conditions, unspecified trimester (principal); M54.5 Low back pain
CPT/HCPCS: 97010; 97110; 97140; 97162; 97535

== ENCOUNTER → 2022-06-27 10:05 | Outpatient (CLI) | payer BC, SELFPAY ==
[2022-06-27 13:06] LABS: HCG Quantitative /Beta subunit 60.6 mIU/mL
== END ==
PROVIDERS: Family Provider Family Medicine; PCP Family Medicine; Referring Provider Obstetrics & Gynecology; Visit Provider Obstetrics & Gynecology
DX: N96 Recurrent pregnancy loss (principal)
CPT/HCPCS: 36415; 84702

== ENCOUNTER → 2022-06-29 11:16 | Outpatient (CLI) | payer BC, SELFPAY ==
[2022-06-29 12:45] LABS: HCG Quantitative /Beta subunit 176.5 mIU/mL
== END ==
PROVIDERS: Family Provider Family Medicine; PCP Family Medicine; Referring Provider Obstetrics & Gynecology; Visit Provider Obstetrics & Gynecology
DX: O20.9 Hemorrhage in early pregnancy, unspecified (principal)
CPT/HCPCS: 36415; 84702

== ENCOUNTER → 2022-07-10 10:58 | Outpatient (CLI) | payer BC, SELFPAY ==
[2022-07-10 12:32] LABS: HCG Quantitative /Beta subunit 13906 mIU/mL
== END ==
PROVIDERS: Family Provider Family Medicine; PCP Family Medicine; Referring Provider Obstetrics & Gynecology; Visit Provider Obstetrics & Gynecology
DX: N96 Recurrent pregnancy loss (principal)
CPT/HCPCS: 36415; 84702

== ENCOUNTER → 2022-07-13 13:47 | Outpatient (CLI) | payer BC, SELFPAY ==
[2022-07-13 14:53] LABS: HCG Quantitative /Beta subunit 22804 mIU/mL
== END ==
PROVIDERS: Family Provider Family Medicine; PCP Family Medicine; Referring Provider Obstetrics & Gynecology; Visit Provider Obstetrics & Gynecology
DX: N96 Recurrent pregnancy loss (principal)
CPT/HCPCS: 36415; 84702

== ENCOUNTER → 2022-08-08 11:28 | Outpatient (CLI) | payer BC, SELFPAY ==
[2022-08-08 12:50] LABS: Add Manual Diff / Slide Review NO; Basophils Absolute Auto 0 /uL (0-100); Basophils Percent Auto 0.2 % (0-2); Eosinophils Absolute Auto 100 /uL (0-450); Eosinophils Percent Auto 1.5 % (2-4); Hematocrit 35.5 % (36-46); Hemoglobin 12.2 g/dL (12.0-16.0); Lymphocytes Absolute Auto 2200 /uL (1100-4500); Lymphocytes Percent Auto 31.9 % (25-40); Mean Corpuscular HGB Conc 34.3 % (30-36); Mean Corpuscular Hemoglobin 29.3 PG (26-34); Mean Corpuscular Volume 85.5 fL (80-100); Monocytes Absolute Auto 500 /uL (0-900); Monocytes Percent Auto 7.9 % (3-14); Neutrophils Absolute Auto 4100 /uL (1500-7000); Neutrophils Percent Auto 58.5 % (50-75); Platelet Count 380 X10^3/uL (150-400); Red Blood Cell Count 4.15 X10^6/uL (4.0-5.2); Red Cell Distribution Width 12.1 % (11.6-14.8); White Blood Cell Count 6.9 X10^3/uL (4.5-11.0)
[2022-08-08 12:51] LABS: Appearance Urine UA CLEAR; Bilirubin Urine UA NEGATIVE (NEGATIVE); Color Urine UA YELLOW; Glucose Urine UA NEGATIVE (Negative); Ketones Urine UA NEGATIVE (NEGATIVE); Leukocyte Esterase Urine UA NEGATIVE (NEGATIVE); Nitrite Urine UA NEGATIVE (Negative); Occult Blood Urine UA NEGATIVE (Negative); Protein Urine UA NEGATIVE (Negative); Specific Gravity Urine UA 1.015 (1.000-1.035); Urobilinogen Urine UA 0.2 E.U./dL (0.2)
[2022-08-08 14:04] LABS: HCG Quantitative /Beta subunit 65925 mIU/mL
[2022-08-08 14:16] LABS: Hepatitis B Surface Antigen NEGATIVE s/c (NEGATIVE); Rubella Antibody IgG 53.2 IU/mL (>15)
[2022-08-08 14:38] LABS: HIV 1 & 2 Ab/Ag 4th Gen Combo NEGATIVE (NEGATIVE); Hep C Virus Ab w/Reflex Quant NEGATIVE s/c (NEGATIVE)
[2022-08-09 05:33] LABS: RPR Screen Non Reactive (Non Reactive)
[2022-08-09 09:09] LABS: Varicella IgG Antibody <135 index (Immune >165)
== END ==
PROVIDERS: Family Provider Family Medicine; PCP Family Medicine; Referring Provider Obstetrics & Gynecology; Visit Provider Obstetrics & Gynecology
DX: Z34.81 Encounter for supervision of other normal pregnancy, first trimester (principal); N96 Recurrent pregnancy loss
CPT/HCPCS: 36415; 80055; 81003; 84702; 86787; 86803; 86850; 86900; 86901; 87086; 87389

== ENCOUNTER → 2022-08-28 12:09 | Outpatient (CLI) | payer BC, SELFPAY ==
[2022-08-28 16:20] LABS: Urine N gonorrhoeae NOT DETECTED
[2022-08-28 16:23] LABS: Urine Chlamydia NOT DETECTED
== END ==
PROVIDERS: Family Provider Family Medicine; PCP Family Medicine; Visit Provider Obstetrics & Gynecology
DX: Z34.81 Encounter for supervision of other normal pregnancy, first trimester (principal); Z3A.13 13 weeks gestation of pregnancy
CPT/HCPCS: 87491; 87591

== ENCOUNTER → 2022-10-03 09:55 | Outpatient (CLI) | payer BC, SELFPAY ==
[2022-10-05 21:24] LABS: Gest Age on Col Date 18.6 weeks (.); Insulin Dep Diabetes No (.); OSBR Risk 1IN 5926 (.); Results Report (.); Test Results *Screen Negative* (.)
== END ==
PROVIDERS: Family Provider Family Medicine; PCP Family Medicine; Referring Provider Obstetrics & Gynecology; Visit Provider Obstetrics & Gynecology
DX: Z34.82 Encounter for supervision of other normal pregnancy, second trimester (principal); Z3A.18 18 weeks gestation of pregnancy
CPT/HCPCS: 36415; 82105

== ENCOUNTER → 2022-10-30 14:14 | Outpatient (CLI) | payer BC, SELFPAY ==
--- NOTE | 2022-10-30 14:15 | DI.US.S_ITS ---
PROCEDURE: US OB >= 14 WEEKS FETUS INDICATIONS: ANATOMY OUTSIDE/PRIOR DATING DATA: Last menstrual period (LMP): May 26, 2022. LMP-based estimated date of delivery (KARAN): March 02, 2023. First dating scan (date and location): July 24, 2022. Estimated date of delivery (KARAN) from first dating scan: March 05, 2023. The calculations are made using the clinical KARAN of March 02, 2023. TECHNIQUE: Real-time scanning was performed of the fetus, with image documentation and biometric measurements. Endovaginal scanning: Not performed COMPARISON: [facility], , OB <= 14 WEEKS FETUS, 07/24/2022, 16:15. FINDINGS: General: A single living intrauterine gestation is present. Presentation: Breech. Placenta: Placental position is posterior , without previa. Amniotic fluid index: 17.1 cm, normal range is 5-24 cm. Single deepest vertical pocket is 5.5 cm. heart rate: 149 beats per minute. Maternal cervical canal: 6.0 cm long. Normal lower limit is 2.5 cm. biometrics: Biparietal diameter: 5.4 cm, 22 weeks and 4 days Head circumference: 20.0 cm, 22 weeks and 1 day Abdominal circumference: 16.8 cm, 21 weeks and 5 days Femur length: 3.8 cm, 22 weeks and 0 day Clinically estimated gestational age: 22 weeks and 3 days Composite gestational age from present scan: 22 weeks and 1 day Estimated weight and percentile: 463 g, correlating with the 21st percentile based off gestational age Anatomic survey: Neuro: Ventricles are non-dilated at less than 10 mm. Cisterna magna is normal at 3-11 mm. Cerebellum is normal in size and morphology. Nuchal skin fold: Normal at less than 6 mm between 14-21 weeks gestational age. Face: Nose and lips, facial profile are normal. Spine: No evidence for spina bifida. Heart: 4-chambered heart is present, with normal ventricular outflow tracts. Diaphragm: Diaphragm is intact. Stomach: Left-sided stomach is present. Kidneys: No hydronephrosis. Normal is less than 5 mm in 2nd trimester, less than 7 mm in 3rd trimester. Cord: 3-vessel cord has orthotopic insertion. Bladder: Normal in size. Extremities: All 4 extremities identified. Other: There is an amniotic band visualized arising from the mid left urine wall extending inferiorly. IMPRESSION: 1. Single living intrauterine gestation with estimated sonographic gestational age of approximately 22 weeks and 1 days versus estimated clinical gestational age of approximately 22 weeks and 3 days. Normal interval growth has occurred. 2. Estimated weight of approximately 463 g which correlates with the 21st percentile. 3. Unremarkable anatomy screening survey. 4. There is an amniotic band visualized arising from the mid left urine wall extending inferiorly. We strive to produce accurate, complete, and clear reports of imaging services. To assist us in improving patient care, this report was composed using standard report templates and voice recognition software. Therefore, it may contain abnormal punctuation, insertions and/or omissions. Occasional wrong-word or sound-alike substitutions may occur. Though we review the report and make efforts to correct it, we do recommend that the report be read carefully in proper context to recognize any text inaccuracies. Dictated by: Gavino Cabrera M.D. on 10/30/2022 at 17:50 Approved by: Gavino Cabrera M.D. on 10/30/2022 at 17:58
== END ==
PROVIDERS: Family Provider Family Medicine; PCP Family Medicine; Referring Provider Obstetrics & Gynecology; Visit Provider Obstetrics & Gynecology
DX: Z34.82 Encounter for supervision of other normal pregnancy, second trimester (principal); Z3A.20 20 weeks gestation of pregnancy
CPT/HCPCS: 76811

== ENCOUNTER → 2022-11-28 14:00 | Outpatient (CLI) | payer BC, SELFPAY ==
[2022-11-28 15:17] LABS: Hemoglobin 11.4 g/dL (12.0-16.0)
[2022-11-28 15:35] LABS: GTT (PREG) 1 Hour PP 50gm Dose 88 mg/dL (76-139)
== END ==
PROVIDERS: Family Provider Family Medicine; PCP Family Medicine; Referring Provider Obstetrics & Gynecology; Visit Provider Obstetrics & Gynecology
DX: Z34.92 Encounter for supervision of normal pregnancy, unspecified, second trimester (principal); Z3A.26 26 weeks gestation of pregnancy
CPT/HCPCS: 36415; 82950; 85014; 85018

== ENCOUNTER → 2023-02-06 09:27 | Outpatient (CLI) | payer BC, SELFPAY ==
[2023-02-07 08:06] LABS: Strep Grp B PCR NEG for Grp B Strep
== END ==
PROVIDERS: Family Provider Family Medicine; PCP Family Medicine; Visit Provider Obstetrics & Gynecology
DX: Z34.83 Encounter for supervision of other normal pregnancy, third trimester (principal); Z3A.36 36 weeks gestation of pregnancy
CPT/HCPCS: 87653

== ENCOUNTER 2023-02-14 08:16 | Outpatient (CLI) | payer BC, SELFPAY ==
[2023-02-14 08:54] LABS: Add Manual Diff / Slide Review NO; Basophils Absolute Auto 100 /uL (0-100); Basophils Percent Auto 1.1 % (0-2); Eosinophils Absolute Auto 100 /uL (0-450); Eosinophils Percent Auto 0.8 % (2-4); Hematocrit 34.1 % (36-46); Hemoglobin 11.8 g/dL (12.0-16.0); Lymphocytes Absolute Auto 1600 /uL (1100-4500); Lymphocytes Percent Auto 17.3 % (25-40); Mean Corpuscular HGB Conc 34.6 % (30-36); Mean Corpuscular Hemoglobin 29.6 PG (26-34); Mean Corpuscular Volume 85.6 fL (80-100); Monocytes Absolute Auto 1000 /uL (0-900); Monocytes Percent Auto 10.1 % (3-14); Neutrophils Absolute Auto 6600 /uL (1500-7000); Neutrophils Percent Auto 70.7 % (50-75); Platelet Count 251 X10^3/uL (150-400); Red Blood Cell Count 3.98 X10^6/uL (4.0-5.2); Red Cell Distribution Width 13.8 % (11.6-14.8); White Blood Cell Count 9.4 X10^3/uL (4.5-11.0)
[2023-02-14 09:11] LABS: Alanine Aminotransferase 18 IU/L (<35); Albumin 3.4 g/dL (3.5-5.0); Alkaline Phosphatase 151 U/L (38-126); Aspartate Aminotransferase 22 IU/L (14-36); BUN Creatinine Ratio 16.4 (6-22); Bilirubin Total 0.3 mg/dL (0.2-1.3); Blood Urea Nitrogen 9 mg/dL (7-17); Calcium 8.4 mg/dL (8.4-10.2); Carbon Dioxide 20 mmol/L (22-32); Chloride 106 mmol/L (98-107); Estimated Glomerular Filt Rate > 60 mL/min (>60); Globulin 3.3 g/dL (1.7-4.1); Glucose 87 mg/dL (70-100); HEMOLYSIS < 15 (0-50); Potassium 3.8 mmol/L (3.4-5.1); Sodium 133 mmol/L (137-145); Total Protein 6.7 g/dL (6.3-8.2); Uric Acid 5.6 mg/dL (2.5-6.2)
[2023-02-14 10:40] LABS: Creatinine Urine Random 17.8 mg/dL; Protein (Total) Urine Random 16 mg/dL (0-12); Protein Creatinine Ratio Urine 0.89 GRAM/24H
== END 2023-02-14 09:40 | disposition home or self-care (01) ==
LOC: LABOR 09:04 → OB 02-19 11:15
PROVIDERS: Family Provider Family Medicine; PCP Family Medicine; Referring Provider Specialist; Visit Provider Specialist
DX: O16.3 Unspecified maternal hypertension, third trimester (principal); Z3A.37 37 weeks gestation of pregnancy
CPT/HCPCS: 36415; 59025; 80053; 82570; 84156; 84550; 85025; G0378; G0379

== ENCOUNTER 2023-02-21 18:35 | Inpatient (IN) | payer BC, SELFPAY ==
[2023-02-21] MEDS: DINOPROSTONE VAG (CERVIDIL) 10 MG VAG (19:45)
[2023-02-21 20:25] LABS: Add Manual Diff / Slide Review NO; Basophils Absolute Auto 0 /uL (0-100); Basophils Percent Auto 0.4 % (0-2); Eosinophils Absolute Auto 100 /uL (0-450); Eosinophils Percent Auto 0.9 % (2-4); Hemoglobin 12.1 g/dL (12.0-16.0); Lymphocytes Absolute Auto 2100 /uL (1100-4500); Lymphocytes Percent Auto 20.2 % (25-40); Mean Corpuscular HGB Conc 35.6 % (30-36); Mean Corpuscular Hemoglobin 30.7 PG (26-34); Mean Corpuscular Volume 86.3 fL (80-100); Monocytes Absolute Auto 1000 /uL (0-900); Monocytes Percent Auto 9.8 % (3-14); Neutrophils Absolute Auto 7000 /uL (1500-7000); Neutrophils Percent Auto 68.7 % (50-75); Platelet Count 262 X10^3/uL (150-400); Red Blood Cell Count 3.95 X10^6/uL (4.0-5.2); Red Cell Distribution Width 14.1 % (11.6-14.8); White Blood Cell Count 10.2 X10^3/uL (4.5-11.0)
[2023-02-21 20:42] VITALS: BP 145/83
--- NOTE | 2023-02-22 07:10 | PM.OBHP.IH.1 ---
OB HPI Date/Time Date of admission: 02/21/23 Date Patient Seen: 02/22/23 Time Patient Seen: 07:10 History of Present Condition Chief complaint: induction KARAN Calculator Estimated Delivery Date Method Current WG Current Estimate 03/02/23 LMP (Certain) 38w 6d Other Estimates 03/05/23 Ultrasound #1 38w 3d Estimated Gestational Age (weeks): 39 : 7 Para: 1 care: good care, initiated at week #, number of visits and pounds weight gain Dating criteria OB: LMP confirmed by 1st trimester US Ultrasounds: normal 1st trimester US and normal mid trimester US Medical complications OB: other (Anticardiolipin antibody +) Indications Indication for induction OB: other (FRANCISCA+) Preadmission Labs Last OB Lab Results: Blood Type O Positive 02/21/23 20:00 Antibody Screen Negative 02/21/23 20:00 Hematocrit 34.0 % (36-46) L 02/21/23 20:00 Hemoglobin 12.1 g/dL (12.0-16.0) 02/21/23 20:00 Hepatitis B Surface Antigen Negative s/c (NEGATIVE) 08/08/22 11:58 Hepatitis C Antibody Negative s/c (NEGATIVE) 08/08/22 11:58 Rubella Antibody 53.2 IU/mL (>15) 08/08/22 11:58 Varicella-Zoster IgG Antibody <135 index (Immune >165) L 08/08/22 11:58 Glucose 1 Hour 88 mg/dL (76-139) 11/28/22 15:11 Group B Streptococcus (PCR) Neg for grp b strep 02/06/23 09:27 -: Chlamydia screen: negative, Gonorrhea screen: negative and Urine: negative -: PAP smear: Normal Genetic Screens: Cell-free DNA: Normal (normal female) and Alpha-fetoprotein: Normal External Labs -: Urine: negative Prior (ies) Past Pregnancies Del. Date GA/Weeks Labor Lgth Wt Sex Route Outcome Anesthesia Place Delv Breastfeed Preg Comp Name 10/01/11 7 elective [place] N/A 09/14/13 7 elective [facility] 11/20/18 6 spontaneous [place] 08/12/19 spontaneous [place] spontaneous 06/22/20 7 spontaneous [place], seeing Dr. Snyder. intrauterine spontaneous 05/21/21 36.6 8 5 lb 11 oz Female vaginal live - epidural IH Still going as of 07/03/22 other [place] Delivery Date: 06/22/20 Last Updated by: Chika Kothari R.N. 06/22/20 US for viability; Findings consistent with early embryonic demise. Pt advised to call for f/u if SAB not completed in 1 week. Delivery Date: 05/21/21 Last Updated by: Christel Apple RN PPROM Evaluation Evaluation Baseline heart rate: 135 Variability: Moderate (11-25) monitor accelerations: Present Monitor Decelerations: Absent Uterine Contraction Intensity: Mild Dilation (cm): 4 Effacement (%): 75 station: -2 [facility] Medical History (Updated 02/14/23 @ 08:20 by Joycelyn Parrish MD) Anti-cardiolipin antibody positive (~07/27/20) Anxiety Clavicle fracture (~1992) Depression Elective Meningitis Migraines Performance anxiety anxiety depression Premenstrual dysphoric disorder Spontaneous Surgical History History of dilatation and curettage S/P tonsillectomy and adenoidectomy S/P wisdom tooth extraction Family History Mother Depression Bipolar 1 disorder Hepatitis C Anxiety Grandmother Diabetes mellitus Congestive heart failure Father Family estrangement Unknown family medical history Grandfather Unknown family medical history Grandmother Unknown family medical history Family estrangement Grandfather Family estrangement Unknown family medical history Sister Bipolar 1 disorder Sister Depression Social History marital status: number of children: 1 household members: spouse, children and none lives independently: No caregiver/support person: Yes housing: house pets and animals: Yes (3 dogs, 1 cat: Aware of precautions, safe.) education level: vocational occupational status: employed (very part-time, probably quitting soon) 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.) special allyssa needs: No travel history: recent (local ([place]) only) seatbelt use: always helmet use: Yes water heater temp set < 120 deg: Yes working smoke detector in home: Yes fire extinguisher in home: Yes carbon monox detector in home: Yes firearms in home: Yes firearms unloaded and locked: Yes do you feel safe at home: Yes Smoking Status: Never smoker second hand exposure: No alcohol intake: former (~5/week when not ) substance use type: does not use during the past year weight has: remained stable (back to pre-baby weight) well-balanced diet: daily or most days daily servings fruits/ve-4 caffeine: Yes (1 cup/day) Type(s) of exercise: walking, weight lifting and other (hiking) frequency: daily Meds Home Medications and Allergies Home Medications Medication Instructions Recorded Confirmed Type cyanocobalamin (vitamin B-12) 1,000 mcg PO DAILY 07/03/22 02/21/23 History 1,000 mcg tablet folic acid 800 mcg tablet 0.8 mg PO DAILY 07/03/22 02/21/23 History prenat.vits,cedric,rnm-vlsa-rnsvb 1 tab PO DAILY 07/03/22 02/21/23 History fluoxetine 20 mg tablet 20 mg PO DAILY #30 tabs 07/13/22 02/21/23 Rx heparin (porcine) 5,000 unit/mL 5,000 unit 02/22/23 History injection solution Allergies Allergy/AdvReac Type Severity Reaction Status Date / Time No Known Drug Allergies Allergy Verified 02/21/23 20:44 OB Exam Narrative Exam Narrative: Generally: Patient lying in bed, no acute distress Lungs: Clear to auscultation bilaterally Cardiovascular: Regular rate and rhythm Fundal height: 39 cm Estimated weight: 7 lb Extremities: Trace edema, 1+ DTR Objective Labs 02/21/23 20:00 Labs: Laboratory Results - last 24 hr 02/21/23 02/21/23 20:00 20:00 WBC 10.2 RBC 3.95 L Hgb 12.1 Hct 34.0 L MCV 86.3 MCH 30.7 MCHC 35.6 RDW 14.1 Plt Count 262 Neut % (Auto) 68.7 Lymph % (Auto) 20.2 L [place] % (Auto) 9.8 Eos % (Auto) 0.9 L Baso % (Auto) 0.4 Neut # (Auto) 7000 Lymph # (Auto) 2100 [place] # (Auto) 1000 H Eos # (Auto) 100 Baso # (Auto) 0 Blood Type O Positive Antibody Screen Negative Assessment and Plan Assessment and Plan Assessment and Plan narrative: Assessment: 32-year-old 7 para 1 at estimated gestational age of 39 weeks gestation status post cervical ripening Anticardiolipin antibody positive Plan: Begin Pitocin Epidural as necessary Artificial rupture of membranes when able Expected management to spontaneous vaginal delivery
[2023-02-22] MEDS: OXYTOCIN PREMIX 30 UNIT/500 ML PLAST..BAG IV (08:07)
[2023-02-22] MEDS: FLUoxetine 20 MG CAPSULE PO (08:07)
[2023-02-22] MEDS: LACTATED RINGERS 1,000 ML 100 ML IV (08:08)
--- NOTE | 2023-02-22 10:19 | PM.OBPNLAB ---
Date/Time Date Patient Seen: 02/22/23 Time Patient Seen: 10:19 Pain Control Pain control: tolerating well Pelvic Exam Dilation (cm): 4 Effacement (%): 85 station: -1 Amniotic membrane status: Bulging Contractions Contractions on admission: none Monitor mode: External Pitocin rate (mU/min): 4 Contraction frequency (min): 2 Contraction duration (min): 1 Contraction pattern: Regular Contraction intensity: Moderate Status status: Category l Heart Rate Baseline: 135 Monitor Accelerations: Present Monitor Decelerations: Absent Monitor Variability: Moderate Assessment and Plan Assessment: induction ongoing Comments: AROM with clear amniotic fluid Epidural as needed Expectant management to
[2023-02-22] MEDS: FENT 2MCG/ML BUPIV 0.125% EPI 200 MCG/100 ML PLAST..BAG 6 MCG EPIDURAL (11:19)
[2023-02-22] MEDS: IBUPROFEN 600 MG TABLET PO (13:56)
[2023-02-22] MEDS: ACETAMINOPHEN 325 MG TABLET 650 MG PO (13:56)
[2023-02-22 17:29] VITALS: BP 133/83; PULSE 74; RESP 16; TEMP 36.6
--- NOTE | 2023-02-26 18:32 | PM.OBPRVD ---
Events: Labor Induction Labor & Delivery Delivery date: 02/22/23 Intrapartal Events: None Cervical ripening method: per Cervidil protocol Induction method: per pitocin protocol Delivery augmentation: rupture of membranes Delivery monitor: external FHT and external uterine Route of delivery: Episiotomy description: None L&D Laceration Description: None Quantitative Blood Loss: 100 Anesthesia Type: Epidural Complications: None Narrative: Patient complete and pushed with 2 contractions. At 1148, a live female delivered spontaneously over an intact perineum, in the TABITHA position. A nuchal cord x 1 was reduced on the perineum. The remainder of the body delivered without difficulty and was placed on mom's abdomen. The cord was double clamped and cut after it stopped pulsing. Pitocin was given in the IVF's at 220 cc/hour. The placenta delivered intact with a 3 vessel cord at 1156. The fundus was massaged to firm. The perineum was inspected and there were no lacerations. Apgars 7 at 1 minute and 9 at 5 minutes. Epidural analgesia. . weight 7# 7.8 oz. Mom and stable to recovery. QBL: 100cc Baby 1: Infant gender: Female Presentation: vertex Position: Right Occiput Anterior Placenta delivery description: Spontaneous Cord Vessel Description: 3 Vessels, Nuchal Cord (x1) and Reduced (on the perineum) score (1 min): 7 score (5 min): 9 weight: 7 lb 7.8 oz Plan for aftercare: Routine care
== END 2023-02-22 18:10 | disposition home or self-care (01) | DRG 806 ==
PROVIDERS: Admitting Provider Obstetrics & Gynecology; Family Provider Family Medicine; PCP Family Medicine; Referring Provider Obstetrics & Gynecology; Visit Provider Obstetrics & Gynecology
DX: O99.113 Other diseases of the blood and blood-forming organs and certain disorders involving the immune mechanism complicating pregnancy, third trimester (principal); D68.61 Antiphospholipid syndrome; Z37.0 Single live birth; Z3A.38 38 weeks gestation of pregnancy
CPT/HCPCS: 36415; 59050; 59200; 59400; 85025; 86850; 86900; 86901; G0379; J2590

== ENCOUNTER → 2025-01-13 09:56 | Outpatient (CLI) | payer BC, SELFPAY | LOC: LAB 09:56 | PROVIDERS: Family Provider Family Medicine; PCP Family Medicine; Visit Provider Family Medicine | DX: N89.8 Other specified noninflammatory disorders of vagina (principal) | CPT/HCPCS: 87210 ==